=== PATIENT | male | born 1995 | race Caucasian/White ===

== ENCOUNTER 2023-03-21 20:15 | Emergency (ER) | payer OTHER ==
[2023-03-21 20:35] VITALS: O2SAT 100
--- NOTE | 2023-03-21 20:52 | XRAY Report ---
PROCEDURE: Wrist 4 View LT INDICATIONS: left wrist injury TECHNIQUE: 4 views of the wrist were acquired. COMPARISON: None. FINDINGS: Bones: Mildly displaced fracture of the distal radius, intra-articular. Minimally displaced ulnar st yloid fracture. Soft tissues: Soft tissue swelling is present. IMPRESSION: Distal radius and ulnar styloid fractures. There is surrounding soft tissue swelling. Reviewed by: Ernie Flowers MD on 03/21/2023 8:50 PM PDT Approved by: Ernie Flowers MD on 03/21/2023 8:50 PM PDT Station ID: [id number]
[2023-03-21] MEDS ORDERED: oxyCODONE/ACET 5/325 Prepack 4 PO STA (20:53)
[2023-03-21 21:19] VITALS: BP 128/74
--- NOTE | 2023-03-21 21:57 | ED Physician Documentation ---
PD HPI UPPER EXT INJURY - Stated complaint Stated Complaint: L WRIST INJ - Chief complaint Chief Complaint: Ext Problem - History obtained from History obtained from: Patient - History of Present Illness Location: Left, Wrist - Additonal information Additional information: HPI from patient. Patient complains of sudden onset of left wrist pain while playing football approximately 30 minutes ago. Pain is distinctly worse with movement that involves the left wrist. Patient is right-hand dominant.Denies numbness, weakness. Denies any other injury aside from the left wrist. Denies head injury, headache. Denies neck injury, neck pain. Review of Systems Skin: denies: Abrasion (s), Laceration (s) Musculoskeletal: reports: Joint pain, Joint swelling Neurologic: denies: Focal weakness, Numbness PD PAST MEDICAL HISTORY - Past Medical History Past Medical History: No - Present Medications Home Medications: Ambulatory Orders Medication Instructions Recorded Confirmed Ibuprofen [Motrin] 600 mg PO Q6H PRN #20 tab 03/21/23 Oxycodone HCl/Acetaminophen 1 - 2 each PO Q6H PRN #14 tablet 03/21/23 [Percocet 5-325 mg Tablet] - Allergies Allergies/Adverse Reactions: Allergies Allergy/AdvReac Type Severity Reaction Status Date / Time No Known Drug Allergies Allergy Verified 03/21/23 20:25 PD ED PE NORMAL - Vitals Vital signs reviewed: Yes - General General: Alert and oriented X 3, No acute distress, Well developed/nourished - Neuro Neuro: No sensory deficit (LTS intact left hand/fingers), Other (unable to assess motor due to exacerbation of wrist pain with movement of the wrist, hand) PD ED PE EXPANDED - Extremities Extremities: Tenderness, Limited ROM, Swelling, Left wrist Results - Vitals Vitals: Vital Signs - 24 hr 03/21/23 03/21/23 03/21/23 20:19 20:28 21:15 Temperature 36.9 C 36.6 C 36.6 C Heart Rate 88 78 89 Respiratory 18 20 20 Rate Blood Pressure 163/86 H 130/74 128/74 O2 Saturation 97 100 100 Oxygen O2 Source Room air - Rads (name of study) left wrist xrays Relevant Findings:: Prelim report reviewed, EMP independent interpretation of test (I reviewed these images and my interpretation is ulnar styloid fracture, mildly displaced comminuted distal radial fracture with intra-articular involvement), See rad report Procedures - Splint (location) - Minor Upper extremity left Splint applied by: Nurse Type of splint: Fiberglass, Short arm (volar) Other: Patient tolerated well, No complications, Neurovascular intact, Good alignment, Sling provided PD Medical Decision Making - ED course Complexity details: reviewed results, re-evaluated patient, considered differential, d/w patient ED course: Distal radius fracture as noted above ("results"); ulnar styloid fracture also noted on these studies. Results are discussed with patient. He declines analgesics on initial eval as well as reevaluation. I provided him with a take- home pack of Percocet, as well as prescriptions for 600 mg ibuprofen and Percocet. I received an error message on multiple attempts to e-prescribe these medications and thus I provided the patient with printed/signed hard copies. Splint is placed and sling provided. Advised to follow up with orthopedic surgery within one week. Departure - Departure Disposition: 01 Home, Self Care Clinical Impression: Left wrist fracture Qualifiers: Encounter type: initial encounter Fracture type: closed Qualified Code(s): S62.102A - Fracture of unspecified carpal bone, left wrist, initial encounter for closed fracture Condition: Good Instructions: ED Fx Colles Wrist No Redu Requ, ED Sling, ED Fx Wrist General Follow-Up: Joaquin Mayberry MD [Provider Admit Priv/Credential] - Prescriptions: Ibuprofen [Motrin] 600 mg PO Q6H PRN #20 tab PRN Reason: Pain Oxycodone HCl/Acetaminophen [Percocet 5-325 mg Tablet] 1 - 2 each PO Q6H PRN #14 tablet PRN Reason: pain Comments: The x-rays of the wrist show fractures (breaks) of both of the bones of the forearm (ulna and radius). You will need to follow-up with orthopedic surgery within one week for reevaluation; they will advise you regarding further care such as placement of a cast and/or surgical repair. I have electronically submitted prescriptions for ibuprofen and Percocet (narcotic/opiate pain medication) to the [facility] pharmacy in [place]. I am prescribing a short course of narcotic pain medication for you. These are potentially dangerous and addictive medications that should be used carefully. These medications may constipate you. Take an [id number] stool softener (docusate) twice daily with plenty of water while taking these medications. If you go 24 hours without a bowel movement, take [id number] miralax, per package instructions. Do not drink or drive while taking these medications. If you received narcotic or sedating medications while in the emergency department, do not drive for 24 hours. Store this medication in a safe, secure place and out of reach of children. It is a violation of federal law to give or sell this medication to another person or to use in a manner other than prescribed. The ED will not refill narcotic prescriptions, including prescriptions lost or stolen. To dispose of unwanted medications: 1. [facility] at [address] in [place] has a medication drop box. They accept prescription medications (in pill form) Sunday through Sunday 9:00 a.m. to 5:00 p.m. 2. [facility] accepts prescription medications (in pill form only) for disposal year round. Call for more information. 3. Contact the [facility] for the next [facility] sponsored prescription drug collection event. , [phone], or [phone]; Forms: Activity restrictions Discharge Date/Time: 03/21/23 21:16
== END 2023-03-21 21:16 | disposition home or self-care (01) ==
LOC: ED 20:15
DX: S62.102A Fracture of unspecified carpal bone, left wrist, initial encounter for closed fracture (principal); X58.XXXA Exposure to other specified factors, initial encounter; Y93.61 Activity, american tackle football
CPT/HCPCS: 29125; 99283; 99284